=== PATIENT | female | born 1990 | race Hispanic/Latino ===

== ENCOUNTER 2025-02-09 18:00 | Inpatient (IN) | payer OTHER ==
[2025-02-09 21:24] VITALS: BMI 30.2
[2025-02-09] MEDS ORDERED: Tranexamic Acid 1,000 MG/10 ML VIAL IVP PRN (21:42)
[2025-02-09] MEDS ORDERED: Ibuprofen 800 MG TAB PO PRN (21:42)
[2025-02-09] MEDS ORDERED: Diphenoxylate HCl/Atropine Tablet PO PRN ×2 (21:42)
[2025-02-09] MEDS ORDERED: hydrALAZINE 20 MG/ML VIAL SLOW IVP PRN (21:42)
[2025-02-09] MEDS ORDERED: Lidocaine 1% (PF) 30 ML VIAL SC PRN (21:42)
[2025-02-09] MEDS ORDERED: Carboprost 250 MCG/ML AMP IM PRN (21:42)
[2025-02-09] MEDS ORDERED: Ondansetron PF 4 MG/2 ML Vial IVP PRN (21:42)
[2025-02-09] MEDS ORDERED: Acetaminophen 500 MG TAB PO PRN (21:42)
[2025-02-09] MEDS ORDERED: Methylergonovine 0.2 MG/ML VIAL IM PRN (21:42)
[2025-02-09] MEDS ORDERED: Oxytocin 30 units/NS 500 ML 500 ML IV SCH (21:45)
[2025-02-09 22:12] LABS: Hematocrit 29.6 % (34.9-44.5); Hemoglobin 10.0 g/dL (12.0-15.5); Mean Corpuscular Hemoglobin 27.0 pg (27.0-33.0); Mean Corpuscular Volume 79.8 fL (81.6-98.3); Platelet Count 217 10x3/uL (150-450); Red Blood Cell (RBC) Count 3.71 10x6/uL (3.90-5.03); White Blood Cell (WBC) Count 6.51 10x3/uL (3.5-10.5)
[2025-02-09] MEDS: Oxytocin 30 units/NS 500 ML 500 ML IV SCH (22:39)
[2025-02-09 22:51] LABS: Hep B Surf Ag - L&D Non-Reactive S/CO (NonReactive)
[2025-02-09 22:53] LABS: Syphilis Antibody Index 0.06 S/CO (<1.00 Non-Reactive)
[2025-02-10] MEDS: fentaNYL/Ropivacaine Epidural 100 ML ONE (03:04)
[2025-02-10] MEDS ORDERED: Ondansetron PF 4 MG/2 ML Vial IVP PRN (03:36)
[2025-02-10] MEDS ORDERED: diphenhydrAMINE 50 MG/ML VIAL IVP PRN (03:36)
[2025-02-10] MEDS ORDERED: fentaNYL 2 mcg/Ropivacaine 0.2% Epidural 100 ML CADD EPIDURAL SCH (03:45)
[2025-02-10] MEDS ORDERED: Communication Order-Pharmacy FS SCH (03:45)
[2025-02-10] MEDS ORDERED: Boostrix 0.5 ML (Tdap) VIAL (>/=7 yrs of age) IM ONE (11:02)
[2025-02-10] MEDS ORDERED: Benzocaine-Menthol 82.5 ML CAN TOP PRN (11:02)
[2025-02-10] MEDS ORDERED: Milk Of Magnesia 30 ML UDCUP PO PRN (11:02)
[2025-02-10] MEDS ORDERED: Bisacodyl 10 MG SUPP PR PRN (11:02)
[2025-02-10] MEDS ORDERED: Lanolin Ointment 7 GM TUBE TOP PRN (11:02)
[2025-02-10] MEDS ORDERED: hydrALAZINE 20 MG/ML VIAL SLOW IVP PRN (11:02)
[2025-02-10] MEDS ORDERED: Preparation H Ointment 28 GM TUBE PR PRN (11:02)
[2025-02-10] MEDS ORDERED: Bupivacaine 0.25% HCL 30 ML VIAL ONE (12:55)
[2025-02-10] MEDS: Ferrous Sulfate 325 MG TAB PO SCH (19:10)
[2025-02-10] MEDS: Ibuprofen 800 MG TAB PO SCH (20:22)
[2025-02-11 06:34] LABS: #Basophils Less than 0.03 10x3/uL (0.0-0.2); #Eosinophils 0.07 10x3/uL (0.0-0.5); #Monocytes 0.85 10x3/uL (0.0-1.1); #Neutrophils 7.12 10x3/uL (1.5-8.4); %Basophils 0.2 % (0.0-2.0); %Eosinophils 0.7 % (0.0-6.0); %Lymphocytes 21.6 % (18.0-47.0); %Monocytes 8.2 % (0.0-10.0); %Neutrophils 68.7 % (40.0-75.0); Hematocrit 31.8 % (34.9-44.5); Hemoglobin 10.5 g/dL (12.0-15.5); Mean Corpuscular Hemoglobin 26.7 pg (27.0-33.0); Mean Corpuscular Volume 80.9 fL (81.6-98.3); Platelet Count 200 10x3/uL (150-450); Red Blood Cell (RBC) Count 3.93 10x6/uL (3.90-5.03); White Blood Cell (WBC) Count 10.36 10x3/uL (3.5-10.5)
[2025-02-11] MEDS: Acetaminophen 325 MG TAB PO PRN (09:27)
[2025-02-11 12:22] VITALS: BP 115/77; TEMP 98.3
[2025-02-11] MEDS: Simethicone Chewable 80 MG TAB PO SCH (12:32)
== END 2025-02-11 16:10 | disposition home or self-care (01) | DRG 807 ==
LOC: CSHLD 20:20 → CSHPED 02-10 13:25
PROVIDERS: ADMIT Obstetrics & Gynecology; ATTEND Obstetrics & Gynecology
PROC: 10E0XZZ Delivery of Products of Conception, External Approach (ICD-10-PCS; principal; 2025-02-10)
PROC: 4A1HXCZ Monitoring of Products of Conception, Cardiac Rate, External Approach (ICD-10-PCS; 2025-02-10)
DX: O76 Abnormality in fetal heart rate and rhythm complicating labor and delivery (principal); Z37.0 Single live birth; Z3A.39 39 weeks gestation of pregnancy; O99.02 Anemia complicating childbirth
CPT/HCPCS: 36415; 51702; 85025; 85027; 86780; 86850; 86900; 86901; 87340; J0665; J2590; J7120